=== PATIENT | female | born 1965 | race Caucasian/White ===

== ENCOUNTER 2017-08-24 20:51 | Emergency (ER) | payer BC ==
[2017-08-24 21:01] VITALS: BP 149/91; PULSE 80; RESP 18; TEMP 97.8; O2SAT 99
--- NOTE | 2017-08-24 21:32 | C.PDOC ---
History Of Present Illness 51 y/o female with hx dm and htn c/o 2+ weeks of left knee pain with no hx trauma. pt reports she has migratory areas of swelling to knee; sometimes to proximal medial knee, other times to lower knee. seen by pmd 2 weeks ago and got a pain shot in buttock which didn't help and pt not taking anything else for pain at home. pt denies fever. pt has appt with ortho for 09/17. no fever or chills. Time Seen by Provider: 08/24/17 21:10 Chief Complaint (Nursing): Lower Extremity Problem/Injury History Per: Patient History/Exam Limitations: no limitations Onset/Duration Of Symptoms: Days (14) Current Symptoms Are (Timing): Still Present Severity: Moderate Past Medical History Reviewed: Historical Data, Nursing Documentation, Vital Signs Vital Signs: Last Vital Signs Temp 97.8 F 08/24/17 20:57 Pulse 80 08/24/17 20:57 Resp 18 08/24/17 20:57 BP 149/91 H 08/24/17 20:57 Pulse Ox 99 08/25/17 13:29 - Medical History PMH: Arthritis, HTN - [facility] INJECT/INFUSE NEC (02/23/04) Family History: States: Unknown Family Hx - Social History Hx Alcohol Use: No Hx Substance Use: No Review Of Systems Constitutional: Negative for: Fever, Chills Musculoskeletal: Positive for: Other (knee left) Skin: Negative for: Rash Neurological: Negative for: Weakness, Numbness Physical Exam - Physical Exam Appears: Non-toxic, No Acute Distress Skin: Warm, Dry, Other (yellowish tinge to left knee; pt has applied a turmeric paste to knee) Extremity: Normal ROM, Tenderness (proximal lateral left knee mildly tender with mild swelling), No Pedal Edema, No Calf Tenderness, Capillary Refill (less than 2 seconds), No Deformity Neurological/Psych: Oriented x3, Normal Speech, Normal Cognition, Normal Motor, Normal Sensation Gait: Steady ED Course And Treatment O2 Sat by Pulse Oximetry: 99 Medical Decision Making Medical Decision Makin +weeks left knee pain; pt putting turmeric on knee. not taking any analgesics. knee xray with possible arthritis. d/c home with nsaids, and dino bandage. pt has f/u appt scheduled for 09/17 with orthopedics Disposition Counseled Patient/Family Regarding: Studies Performed, Diagnosis, Need For Followup, Rx Given - Disposition Referrals: King Xiao [Primary Care Provider] - Disposition: HOME/ ROUTINE Disposition Time: 22:08 Condition: GOOD Additional Instructions: Please wear dino bandage during daytime for support. Recommend Ibuprofen 600 mg by mouth every 6- 8 hours for pain. Cold compresses to knee. Follow up with your doctor and orthopedist as scheduled. Prescriptions: Ibuprofen [Motrin] 600 mg PO TID #30 tab Instructions: Knee Pain (DC) Forms: [facility] (Faroese), General Discharge Instructions - Clinical Impression Clinical Impression: Knee pain, left
--- NOTE | 2017-08-25 07:55 | RAD ---
Left knee three views History: Pain and swelling. Comparison: None available. Findings: Mild medial compartment joint space narrowing of the femorotibial joint space. Small suprapatellar joint effusion. No evidence for acute displaced fracture or dislocation. Impression: Mild degenerative changes. Small suprapatellar joint effusion. If pain persists, consider MRI.
== END 2017-08-24 22:22 | disposition home or self-care (01) ==
LOC: C.ER 20:51 → SUPCPDRO 20:51 → C.ER 22:22
DX: M25.562 Pain in left knee (principal)